=== PATIENT | female | born 1945 | race Caucasian/White ===

== ENCOUNTER → 2021-05-10 | Outpatient (CLI) | payer MEDICARE | END | disposition home or self-care (01) | LOC: LAB SHORT 08:57 → LAB 08:57 | DX: L81.4 Other melanin hyperpigmentation (principal); C44.519 Basal cell carcinoma of skin of other part of trunk | CPT/HCPCS: 88305 ==

== ENCOUNTER → 2022-03-24 | Outpatient (CLI) | payer MEDICARE, OTHER ==
[2022-03-24 11:42] LABS: Source, Urine Voided
[2022-03-24 12:44] LABS: Appearance, Urine Clear (Clear); Bilirubin, Urine Neg (Neg); Blood, Urine Neg (Neg); Color, Urine Yellow (P-Yellow); Glucose Qualitative, Urine Neg (Neg); Ketones, Urine Neg (Neg); Leukocyte Esterase, Urine 1+ (Neg); Nitrite, Urine Neg (Neg); Protein, Urine Neg (Neg); Urobilinogen, Urine NORM (Normal)
[2022-03-24 13:05] LABS: Mucus Light (0-Heavy); Red Blood Cells, Urine 0-2 /hpf (0-2)
[2022-03-24 13:06] LABS: Bacteria Few /hpf; Squamous Epithelial Cells Few /hpf (Few)
== END | disposition home or self-care (01) ==
LOC: LAB SHORT 11:38
PROVIDERS: Internal Medicine
DX: N39.0 Urinary tract infection, site not specified (principal); R45.4 Irritability and anger; R41.0 Disorientation, unspecified
CPT/HCPCS: 81001; 87086

== ENCOUNTER → 2022-11-28 | Outpatient (CLI) | payer MEDICARE | END | disposition home or self-care (01) | LOC: LAB SHORT 08:15 → LAB 08:15 | DX: B35.1 Tinea unguium (principal) | CPT/HCPCS: 88305; 88312 ==

== ENCOUNTER → 2023-01-04 | Outpatient (CLI) | payer MEDICARE ==
[2023-01-04 13:22] LABS: Appearance, Urine Cloudy (Clear); Bilirubin, Urine Neg (Neg); Blood, Urine Neg (Neg); Color, Urine Yellow (P-Yellow); Glucose Qualitative, Urine Neg (Neg); Ketones, Urine Neg (Neg); Leukocyte Esterase, Urine 2+ (Neg); Nitrite, Urine Neg (Neg); Protein, Urine 1+ (Neg); Specific Gravity, Urine 1.015 (1.003-1.022); Urobilinogen, Urine 1+ (Normal); pH, Urine 6.5 (5.0-8.0)
[2023-01-04 14:01] LABS: Bacteria Mod /hpf; Mucus Light (0-Heavy); Red Blood Cells, Urine Not Seen /hpf (0-2); Squamous Epithelial Cells Mod /hpf (Few)
== END | disposition home or self-care (01) ==
LOC: LAB SHORT 10:30
PROVIDERS: Internal Medicine
DX: R30.0 Dysuria (principal)
CPT/HCPCS: 81001; 87077; 87086; 87186

== ENCOUNTER → 2023-08-15 | Outpatient (CLI) | payer MEDICARE ==
[2023-08-15 15:59] LABS: Source, Urine Clean Catch
[2023-08-15 17:17] LABS: Appearance, Urine Clear (Clear); Bilirubin, Urine Neg (Neg); Blood, Urine Neg (Neg); Color, Urine Yellow (P-Yellow); Glucose Qualitative, Urine Neg (Neg); Ketones, Urine Neg (Neg); Leukocyte Esterase, Urine 2+ (Neg); Nitrite, Urine Neg (Neg); Protein, Urine 2+ (Neg); Specific Gravity, Urine 1.025 (1.003-1.022); Urobilinogen, Urine 2+ (Normal)
[2023-08-15 17:30] LABS: Bacteria Mod /hpf; Mucus Mod (0-Heavy); Red Blood Cells, Urine 0-2 /hpf (0-2); Squamous Epithelial Cells Few /hpf (Few)
== END ==
LOC: LAB 14:30 → LAB SHORT 14:30
PROVIDERS: Internal Medicine
DX: N39.0 Urinary tract infection, site not specified (principal)
CPT/HCPCS: 81001; 87086

== ENCOUNTER → 2023-10-16 | Outpatient (CLI) | payer MEDICARE ==
[2023-10-16 14:31] LABS: Appearance, Urine Hazy (Clear); Bilirubin, Urine Neg (Neg); Blood, Urine Neg (Neg); Color, Urine Yellow (P-Yellow); Glucose Qualitative, Urine Neg (Neg); Ketones, Urine Neg (Neg); Leukocyte Esterase, Urine 3+ (Neg); Nitrite, Urine Neg (Neg); Protein, Urine 1+ (Neg); Specific Gravity, Urine 1.015 (1.003-1.022); Urobilinogen, Urine NORM (Normal)
[2023-10-16 14:59] LABS: Bacteria Few /hpf; Hyaline Casts 0-2 /lpf (0-2); Red Blood Cells, Urine 0-2 /hpf (0-2); Squamous Epithelial Cells Few /hpf (Few); Transitional Epithelial Cells Rare /hpf (0-Rare)
[2023-10-16 15:00] LABS: Mucus Light (0-Heavy)
== END | disposition home or self-care (01) ==
LOC: LAB SHORT 13:44 → LAB 13:44
PROVIDERS: Internal Medicine
DX: N39.0 Urinary tract infection, site not specified (principal)
CPT/HCPCS: 81001; 87086

== ENCOUNTER → 2023-10-19 | Outpatient (CLI) | payer MEDICARE ==
[2023-10-19 17:06] LABS: Source, Urine Voided
[2023-10-19 17:45] LABS: Bilirubin, Urine Neg (Neg); Blood, Urine Neg (Neg); Glucose Qualitative, Urine Neg (Neg); Ketones, Urine Neg (Neg); Leukocyte Esterase, Urine 1+ (Neg); Nitrite, Urine Neg (Neg); Protein, Urine 1+ (Neg); Urobilinogen, Urine 2+ (Normal)
[2023-10-19 17:52] LABS: Appearance, Urine Hazy (Clear); Color, Urine Yellow (P-Yellow)
[2023-10-19 17:53] LABS: Red Blood Cells, Urine 0-2 /hpf (0-2)
[2023-10-19 17:54] LABS: Bacteria Few /hpf; Hyaline Casts 0-2 /lpf (0-2); Mucus Light (0-Heavy); Squamous Epithelial Cells Few /hpf (Few); Transitional Epithelial Cells Rare /hpf (0-Rare)
== END ==
LOC: LAB SHORT 17:05 → LAB 17:05
PROVIDERS: Internal Medicine
DX: N39.0 Urinary tract infection, site not specified (principal)
CPT/HCPCS: 81001; 87086

== ENCOUNTER → 2024-02-07 | Outpatient (CLI) | payer MEDICARE ==
[2024-02-07 19:22] LABS: Appearance, Urine Clear (Clear); Bilirubin, Urine Neg (Neg); Blood, Urine Neg (Neg); Color, Urine Yellow (P-Yellow); Glucose Qualitative, Urine Neg (Neg); Ketones, Urine Neg (Neg); Leukocyte Esterase, Urine 1+ (Neg); Nitrite, Urine Neg (Neg); Protein, Urine 1+ (Neg); Specific Gravity, Urine 1.025 (1.003-1.022); Urobilinogen, Urine 1+ (Normal)
[2024-02-07 19:31] LABS: Bacteria Few /hpf; Red Blood Cells, Urine 0-2 /hpf (0-2); Squamous Epithelial Cells Few /hpf (Few)
[2024-02-07 19:32] LABS: Transitional Epithelial Cells Rare /hpf (0-Rare)
== END | disposition home or self-care (01) ==
LOC: LAB SHORT 18:25 → LAB 18:25
PROVIDERS: Internal Medicine
DX: N39.0 Urinary tract infection, site not specified (principal); R41.0 Disorientation, unspecified
CPT/HCPCS: 81001; 87086

== ENCOUNTER 2024-03-24 12:15 | Emergency (ER) | payer MEDICARE ==
[~2024-03-24] VITALS: Ht 167.6 cm; Wt 72.6 kg
[2024-03-24] MEDS ORDERED: AMLO10 PO (13:08)
[2024-03-24] MEDS ORDERED: ABILIFY MYCITE5 M2 PO (13:09)
[2024-03-24] MEDS ORDERED: OMEP20ER PO (13:09)
[2024-03-24] MEDS ORDERED: ASPI81CH PO (13:09)
[2024-03-24] MEDS ORDERED: Zocor10 MG PO (13:10)
[2024-03-24] MEDS ORDERED: VENLAFAXINE H37.5 M1 PO (13:10)
[2024-03-24 14:15] LABS: BASOPHILS ABSOLUTE AUTO 0.04 K/mm3 (0.00-0.23); BASOPHILS PERCENT AUTO 1 % (0-2); EOSINOPHILS ABSOLUTE AUTO 0.05 K/mm3 (0.00-0.68); EOSINOPHILS PERCENT AUTO 1 % (0-6); Hematocrit 38.2 % (33.0-51.0); Hemoglobin 11.9 g/dL (11.5-16.0); IMMATURE GRAN ABSOLUTE AUTO 0.02 K/mm3 (0.00-0.10); IMMATURE GRAN PERCENT AUTO 0 % (0-1); LYMPHOCYTES ABSOLUTE AUTO 1.46 K/mm3 (0.84-5.20); LYMPHOCYTES PERCENT AUTO 17 % (21-46); MONOCYTES PERCENT AUTO 8 % (4-13); Mean Corpuscular HGB 26.5 pg (26.0-34.0); Mean Corpuscular HGB Conc 31.2 g/dL (31.5-36.5); Mean Corpuscular Volume 85 fL (80-100); NEUTROPHILS ABSOLUTE AUTO 6.22 K/mm3 (1.96-9.15); NEUTROPHILS PERCENT AUTO 73 % (41-73); Platelet Count 241 K/mm3 (150-400); RDW Coefficient Variation 13.9 % (11.7-14.2); RDW Standard Deviation 43.1 fL (35.1-46.3); Red Blood Cell Count 4.49 M/mm3 (3.80-5.20); White Blood Cell Count 8.49 K/mm3 (4.00-11.30)
[2024-03-24] MEDS ORDERED: NS 1,000 ML IV SCH (14:25)
[2024-03-24 14:57] LABS: Magnesium, Blood 1.9 mg/dL (1.6-2.4); Thyroid Stimulating Hormone 1.57 uIU/mL (0.360-4.800)
[2024-03-24 14:58] LABS: Albumin, Blood 3.5 g/dL (3.4-5.0); Bilirubin, Total 0.6 mg/dL (0.1-1.0); Bun/Creatinine Ratio 21.2 (12.0-20.0); Calcium, Blood 9.3 mg/dL (8.5-10.1); Creatinine, Blood 0.71 mg/dL (0.40-1.00); Globulin, Blood 3.6 g/dL (2.2-4.0); Potassium, Blood 4.2 mmol/L (3.5-5.5); Total Protein, Blood 7.1 g/dL (6.4-8.2)
[2024-03-24 15:41] LABS: Source, Urine Fem Cath
[2024-03-24 15:46] LABS: Appearance, Urine Clear (Clear); Bilirubin, Urine Neg (Neg); Blood, Urine Neg (Neg); Color, Urine Yellow (P-Yellow); Glucose Qualitative, Urine Neg (Neg); Ketones, Urine Neg (Neg); Leukocyte Esterase, Urine Neg (Neg); Nitrite, Urine Neg (Neg); Protein, Urine Neg (Neg); Urobilinogen, Urine NORM (Normal)
[2024-03-24 16:40] VITALS: BP 150/72
== END 2024-03-24 16:52 | disposition home or self-care (01) ==
LOC: ER 12:15
PROVIDERS: Student in an Organized Health Care Education/Training Program
DX: F01.50 Vascular dementia, unspecified severity, without behavioral disturbance, psychotic disturbance, mood disturbance, and anxiety (principal); I10 Essential (primary) hypertension; Z79.82 Long term (current) use of aspirin; Z79.899 Other long term (current) drug therapy
CPT/HCPCS: 51701; 70450; 80053; 81003; 83735; 84443; 85025; 96360-59; 96361-59; 99285-25; J7030

== ENCOUNTER 2024-03-25 22:07 | Inpatient (IN) | payer MEDICARE ==
[~2024-03-25] VITALS: Ht 167.6 cm; Wt 90.7 kg
[~2024-03-25 22:07] MED LIST: ABILIFY MYCITE5 M2 PO; AMLO10 PO; ASPI81CH PO; OMEP20ER PO; VENLAFAXINE H37.5 M1 PO; Zocor10 MG PO
[2024-03-25 22:45] LABS: Source, Urine Straight Cath
[2024-03-25 23:18] LABS: BASOPHILS ABSOLUTE AUTO 0.03 K/mm3 (0.00-0.23); BASOPHILS PERCENT AUTO 0 % (0-2); EOSINOPHILS PERCENT AUTO 0 % (0-6); Hematocrit 38.7 % (33.0-51.0); Hemoglobin 12.3 g/dL (11.5-16.0); IMMATURE GRAN ABSOLUTE AUTO 0.06 K/mm3 (0.00-0.10); IMMATURE GRAN PERCENT AUTO 0 % (0-1); LYMPHOCYTES ABSOLUTE AUTO 0.58 K/mm3 (0.84-5.20); LYMPHOCYTES PERCENT AUTO 4 % (21-46); MONOCYTES ABSOLUTE AUTO 1.36 K/mm3 (0.16-1.47); MONOCYTES PERCENT AUTO 10 % (4-13); Mean Corpuscular HGB 26.8 pg (26.0-34.0); Mean Corpuscular HGB Conc 31.8 g/dL (31.5-36.5); Mean Corpuscular Volume 84 fL (80-100); NEUTROPHILS ABSOLUTE AUTO 11.31 K/mm3 (1.96-9.15); NEUTROPHILS PERCENT AUTO 85 % (41-73); RDW Coefficient Variation 14.2 % (11.7-14.2); RDW Standard Deviation 43.4 fL (35.1-46.3); Red Blood Cell Count 4.59 M/mm3 (3.80-5.20); White Blood Cell Count 13.34 K/mm3 (4.00-11.30)
[2024-03-25 23:22] LABS: Appearance, Urine Hazy (Clear); Bilirubin, Urine Neg (Neg); Blood, Urine 2+ (Neg); Color, Urine Yellow (P-Yellow); Glucose Qualitative, Urine Neg (Neg); Ketones, Urine 3+ (Neg); Leukocyte Esterase, Urine 1+ (Neg); Nitrite, Urine Neg (Neg); Protein, Urine 2+ (Neg); Specific Gravity, Urine 1.025 (1.003-1.022); Urobilinogen, Urine 1+ (Normal)
[2024-03-25 23:44] LABS: Bacteria Many /hpf; Squamous Epithelial Cells Few /hpf (Few)
[2024-03-26 00:42] LABS: Platelet Count 214 K/mm3 (150-400)
[2024-03-26 00:53] LABS: Albumin, Blood 3.3 g/dL (3.4-5.0); Albumin/Globulin Ratio 0.8 (0.8-1.8); Bun/Creatinine Ratio 27.2 (12.0-20.0); Calcium, Blood 9.1 mg/dL (8.5-10.1); Creatinine, Blood 0.77 mg/dL (0.40-1.00); Globulin, Blood 3.9 g/dL (2.2-4.0); Potassium, Blood 4.2 mmol/L (3.5-5.5); Total Protein, Blood 7.2 g/dL (6.4-8.2)
[2024-03-26] MEDS ORDERED: CefTRIAXone Sodium 1,000 MG in NS 50 ML IV ONE (01:05)
[2024-03-26] MEDS ORDERED: NS 1,000 ML IV SCH (02:10)
[2024-03-26] MEDS ORDERED: Acetaminophen 325 MG TABLET PO PRN (03:30)
--- NOTE | 2024-03-26 06:27 | NUR ---
SHIFT SUMMARY 78 YR F ADMITTED AT APPROX 0545 THIS SHIFT FROM THE ED. PT HAS SEVERE DEMENTIA AND IS UNABLE TO ANSWER QUESTIONS OR BE ASSESSED. SHE SCREAMS WHEN SHE IS TOUCHED. PER REPORT, FAMILY WILL BE IN THIS MORNING AND WILL BE ABLE TO HELP ANSWER QUESTIONS AND CALM PT ENOUGH TO BE ABLE TO ASSESS HER.
[2024-03-26 07:55] VITALS: BP 177/76
[2024-03-26] MEDS ORDERED: Enoxaparin 40 MG/0.4 ML SYR SC SCH (09:00)
[2024-03-26 16:47] VITALS: BP 148/66
--- NOTE | 2024-03-26 17:53 | NUR ---
PT FINALLY WOKE UP THIS OMERO. JUST TRIED BEDSIDE SWALLOW. DID WELL. SPOON AND SIPS, DID NOT TRY STRAW YET. PT STATES DAUGHTER IS STAR. CORRECT. ABLETO TELL ME HER NAME. BED IN LOW POSITION, CALLLITE IN REAC, BED ALARM ON FOR SAFETY
--- NOTE | 2024-03-26 17:55 | NUR ---
PT WOKE UP THIS OMERO. ABLE TO SWALLOW WATER. PT TALKING SOME. HER NAME AND DAUGHTER NAME. SHE DOING SOME BETTER. NO OTHER CHANGES NOTED TODAY. BED IN LOW POSITION, CALL LITE IN REACH, BED ALARM ONFOR SAFETY
[2024-03-26 19:32] VITALS: BP 153/64
[2024-03-27 03:54] VITALS: BP 169/83
[2024-03-27 03:58] VITALS: BP 155/73
--- NOTE | 2024-03-27 04:25 | NUR ---
HOSPITALIST CONTACTED. HOSPITALIST DR. THOMAS CONTACTED AND NOTIFIED OF PATIENT HAVING NEW PIN HOLE OPENING ON INNER RIGHT THIGH. DR. THOMAS ORDERED FOR BANDAGE ON OPENING TO BE CHANGED TWICE A DAY TO KEEP CLEAN AND DRY.
[2024-03-27] MEDS ORDERED: NS 1,000 ML IV SCH (04:40)
--- NOTE | 2024-03-27 05:23 | NUR ---
SHIFT SUMMARY. PATIENT MORE ALERT THIS MORNING DURING INCONTINENCE CHANGE. PATIENTS SPEECH IN MUMBLED AND NONSENSICAL MAJORITY OF THE NIGHT. PATIENT STARTED ON NS 75ML/HR X2BAGS. PATIENT RESTED T/O MOST OF SHIFT WITH RESPIRATIONS EQUAL AND UNLABORED, PATIENT IS SATTING >95% ON RA. PATIENT NIKITA OUT WHEN TOUCHED, WHEN PATIENT IS ASKED IF SHE HURTS SHE REPLIES "NO, I DONT HURT". PATIENT IS CONFUSED AND ONLY ABLE TO ANSWER NAME AND DATE OF THIS SHIFT. PATIENT HAS HX OF DEMENTIA. BED IS LOCKED IN THE LOWEST POSITION WITH CALL LIGHT IN REACH. CARE IS ONGOING.
[2024-03-27] MEDS ORDERED: CefTRIAXone Sodium 1,000 MG in NS 100 ML IV SCH (06:00)
[2024-03-27 06:36] LABS: BASOPHILS ABSOLUTE AUTO 0.04 K/mm3 (0.00-0.23); BASOPHILS PERCENT AUTO 0 % (0-2); EOSINOPHILS PERCENT AUTO 0 % (0-6); Hemoglobin 11.6 g/dL (11.5-16.0); IMMATURE GRAN ABSOLUTE AUTO 0.04 K/mm3 (0.00-0.10); IMMATURE GRAN PERCENT AUTO 0 % (0-1); LYMPHOCYTES ABSOLUTE AUTO 0.74 K/mm3 (0.84-5.20); LYMPHOCYTES PERCENT AUTO 7 % (21-46); MONOCYTES ABSOLUTE AUTO 1.14 K/mm3 (0.16-1.47); MONOCYTES PERCENT AUTO 11 % (4-13); Mean Corpuscular HGB 26.7 pg (26.0-34.0); Mean Corpuscular HGB Conc 31.4 g/dL (31.5-36.5); Mean Corpuscular Volume 85 fL (80-100); Mean Platelet Volume 11.9 fL (9.1-12.4); NEUTROPHILS PERCENT AUTO 81 % (41-73); Platelet Count 183 K/mm3 (150-400); RDW Coefficient Variation 14.2 % (11.7-14.2); RDW Standard Deviation 44.3 fL (35.1-46.3); Red Blood Cell Count 4.35 M/mm3 (3.80-5.20); White Blood Cell Count 10.46 K/mm3 (4.00-11.30)
[2024-03-27 06:55] LABS: Albumin, Blood 2.9 g/dL (3.4-5.0); Albumin/Globulin Ratio 0.7 (0.8-1.8); Bilirubin, Total 0.7 mg/dL (0.1-1.0); Bun/Creatinine Ratio 33.3 (12.0-20.0); Calcium, Blood 9.2 mg/dL (8.5-10.1); Creatinine, Blood 0.84 mg/dL (0.40-1.00); Globulin, Blood 3.9 g/dL (2.2-4.0); Potassium, Blood 3.9 mmol/L (3.5-5.5); Total Protein, Blood 6.8 g/dL (6.4-8.2)
[2024-03-27 07:33] VITALS: BP 165/81
[2024-03-27] MEDS ORDERED: OLMESARTAN-HCT1 EAC3 PO (08:22)
--- NOTE | 2024-03-27 08:23 | NUR ---
VERBAL 0820- FROM DR. BAH- ORDER AMLODIPINE 10MG DAILY.
[2024-03-27] MEDS ORDERED: AmLODIPine Besylate 5 MG Tab PO SCH (09:00)
[2024-03-27 17:04] VITALS: BP 153/69
--- NOTE | 2024-03-27 17:45 | NUR ---
SUMMARY- PT AAOX1 TO SELF THIS SHIFT. PT LETHARGIC THIS MORNING, BUT DID BECOME MORE ALERT BY MID SHIFT AND ASKED FOR SOMETHING TO EAT. THIS RN CALLED DR. COELHO AND MD SAID TO PERFORM A BEDSIDE SWALLOW STUDY FROM RN. PT DID WELL WITH THIN LIQUIDS AND ALL FOOD. PT WAS ORDERED A SOFT AND BITE SIZED DIET. PT WAS COMPLAINING OF GENERAL PAIN THIS SHIFT, WHICH SHE WAS GIVEN TYLENOL FOR. TYLENOL WAS MODERATELY HELPFUL WITH PAIN CONTROL. BED REST ALL SHIFT. PT WORKED WITH PT AND OT SITTING ON THE EDGE OF THE BED ONLY.
[2024-03-27] MEDS ORDERED: BUSPIRONE HCL10 M6 PO (18:14)
[2024-03-27] MEDS ORDERED: Diflucan100 MG PO (18:15)
[2024-03-27] MEDS ORDERED: NAPROXEN500 MG PO (18:17)
[2024-03-27 19:50] VITALS: BP 145/57
[2024-03-27] MEDS ORDERED: Atorvastatin 10 MG Tab PO SCH (21:00)
[2024-03-28 04:13] VITALS: BP 162/60
--- NOTE | 2024-03-28 04:37 | NUR ---
SHIFT SUMMARY: A&O1/2 ALERT TO SELF PLEASANT AND COOPERATIVE. RA DENIES . NO TELE DENIES CP/PRESSURE MURMUR PRESENT. SOFT AND BITE SIZED MEALS. INCONTINENT PT PLACED ON PUREWICK DRAINING DARLENE/TEA COLORED URINE. R INNER THIGH DRSG TO COVER ABRASION. PT/OT ORDERED. TYLENOL PRN ADMIN TO ADEQUATELY REDUCE MINIMAL PAIN. QUESTIONS ANSWERED, CONCERNS ADDRESSED, PT DENIES NEEDS.
[2024-03-28 05:14] LABS: BASOPHILS ABSOLUTE AUTO 0.04 K/mm3 (0.00-0.23); BASOPHILS PERCENT AUTO 1 % (0-2); EOSINOPHILS ABSOLUTE AUTO 0.03 K/mm3 (0.00-0.68); EOSINOPHILS PERCENT AUTO 0 % (0-6); Hematocrit 33.6 % (33.0-51.0); Hemoglobin 10.4 g/dL (11.5-16.0); IMMATURE GRAN PERCENT AUTO 1 % (0-1); LYMPHOCYTES PERCENT AUTO 15 % (21-46); MONOCYTES ABSOLUTE AUTO 1.06 K/mm3 (0.16-1.47); MONOCYTES PERCENT AUTO 12 % (4-13); Mean Corpuscular HGB 26.3 pg (26.0-34.0); Mean Corpuscular Volume 85 fL (80-100); Mean Platelet Volume 11.5 fL (9.1-12.4); NEUTROPHILS ABSOLUTE AUTO 6.25 K/mm3 (1.96-9.15); NEUTROPHILS PERCENT AUTO 71 % (41-73); Platelet Count 186 K/mm3 (150-400); RDW Standard Deviation 43.9 fL (35.1-46.3); Red Blood Cell Count 3.95 M/mm3 (3.80-5.20); White Blood Cell Count 8.78 K/mm3 (4.00-11.30)
[2024-03-28 05:47] LABS: Albumin, Blood 2.4 g/dL (3.4-5.0); Albumin/Globulin Ratio 0.6 (0.8-1.8); Bilirubin, Total 0.7 mg/dL (0.1-1.0); Bun/Creatinine Ratio 43.3 (12.0-20.0); Creatinine, Blood 0.67 mg/dL (0.40-1.00); Potassium, Blood 3.6 mmol/L (3.5-5.5); Total Protein, Blood 6.4 g/dL (6.4-8.2)
[2024-03-28] MEDS ORDERED: Omeprazole 20 MG CapCR PO SCH (06:00)
[2024-03-28 07:56] VITALS: BP 163/72
[2024-03-28] MEDS ORDERED: Aspirin 81 MG Chew PO SCH (09:00)
[2024-03-28] MEDS ORDERED: Venlafaxine HCl 75 MG CapCR PO SCH (09:00)
[2024-03-28] MEDS ORDERED: ARIPiprazole 5 MG Tab PO SCH (09:00)
[2024-03-28 15:46] VITALS: BP 134/69
--- NOTE | 2024-03-28 16:40 | NUR ---
SHIFT SUMMARY: PT IS A&01-2 (SELF, PERSON, AND HOLLIDAY) SHE IS CONFUSED, HAVING VISUAL HALLUNICATIONS, AND IS CONVINCED THAT SHE CAN GET UP AND WALK OUT OF THE HOSPITAL. PATIENT HAS BEEN IN BED THE ENTIRE SHIFT, GETTING Q2HR TURNS. SHE WORKED WITH OT TODAY AND WAS DEEMED AND 2 PERSON MAX FOR CARE; THEY (TWO PEOPLE) WERE ABLE TO GET HER TO SIT ON THE SIDE OF THE BED AND HAVE HER FEET TOUCH THE FLOOR, BUT THE PATIENT QUICKLY REQUESTED TO LAY BACK DOWN. PATIENT IS WEAK. SHE HOLLERS OUT IF NEEDED, CAN ANSWER QUESTIONS AND HAVE A CONVERSATION EVEN IF THE RESPONSES ARE NOT APPRORIATE. SHE IS EATING AND DRINKING WITH ASSISTANCE. HAS TROUBLE FOLLOWING INSTRUCTIONS. SHE CONTINUES TO GET IV ANITBIOTICS, WORKING WITH THERAPY, AND AWAITING PLACEMENT. SHE IS IN BED, CALL LIGHT WITHIN REACH, NO SIGNS OR SYMPTOMS OF DISTRESS, PLAN OF CARE ONGOING.
[2024-03-28 19:27] VITALS: BP 152/74
[2024-03-28] MEDS ORDERED: Lactobacil 2-S.Thermo-Bifido 1 1 Cap PO SCH (21:00)
--- NOTE | 2024-03-29 05:19 | NUR ---
SHIFT SUMMARY: A&OX2/3 PT CONFUSED AND FIXATING ON CONCEPTS OR THOUGHTS NOT BASED WITHIN THIS REALITY SUCH INACCURATE CURRENT LOCATION OR VERY RECENT MEMORIES. RA DENIES SOB NO S/S RESPIRATORY DISTRESS. NO TELE DENIES CP/PRESSURE, MURMUR PRESENT. UNKNOWN LAST BM. INCONTINENT W/ PUREWICK IN PLACE. PT OOB AT BEGINNING OF SHIFT TO SIT UP AND FINISH DINNER. PT SWALLOWED PILLS IN APPLESAUCE ONE AT A TIME. SAFETY MONITORED, BED LOCKED AND LOW W/ CALL LIGHT WITHIN REACH. PT FREQUENTLY ROUNDED ON AND NURSE SAT CLOSE TO PT ROOM TO ENSURE SAFETY. PT AUDIBLE FROM NURSE STATION. QUESTIONS ANSWERED, CONCERNS ADDRESSED, PT STATES NEEDS TO GET OUT AND IMPLIES INTENTION OF NEEDING TO BE ELSEWHERE. MILD C/O OF CHRONIC PAIN, NO PAIN MEDICATION ADMIN THIS SHIFT.
[2024-03-29 05:28] VITALS: BP 144/55
[2024-03-29 07:56] VITALS: BP 153/69
--- NOTE | 2024-03-29 08:55 | NUR ---
CALL MADE TO DR. BAH REQUEST BOWEL MEDS FOR PATIENT; LEFT MESSAGE
--- NOTE | 2024-03-29 12:15 | NUR ---
BLADDER SCANNED PATIENT AT 1140 DUE TO NO URINE PRODUCTION THIS SHIFT RETENTING 374 DR. COELHO NOTIFIED ADVISED TO RESCAN IN 2 HOURS AND IF VOLUME GREATER THAN 500 TO STRAIGHT CATH.
[2024-03-29] MEDS ORDERED: Polyethylene Glycol 3350 17 gm PO PRN (12:25)
[2024-03-29] MEDS ORDERED: Docusate Sodium/Senna 1 Tab PO PRN (12:25)
[2024-03-29 15:45] VITALS: BP 137/90
--- NOTE | 2024-03-29 16:27 | NUR ---
SHIFT SUMMARY: PT IS A&O TO SELF TODAY. SHE REMAINS CONFUSES AND HAVE HALLUNICATIONS. SHE CONTINUES TO GET IV ANTIBIOTICS. SHE HASN'T EATEN OR DRANK MUCH TODAY; EATING AND DRINKING IS BEING ENCOURAGED. SHE CAN SIT ON THE EDGE OF THE BED WITH ASSISTANCE AND SUPERVISION; SHE REMAINS NON WEIGHT BEARING. SHE IS WEAK. UPDATE PROVIDED TO DAUGHTER STAR TODAY. STILL AWAITING ON PLACEMENT. PATIENT IN BED, CALL LIGHT WITHIN REACH, NO SIGNS OR SYMPTOMS OF DISTRESS, PLAN OF CARE ONGOING.
[2024-03-29] MEDS ORDERED: NS 1,000 ML IV SCH (16:35)
[2024-03-29 20:05] VITALS: BP 165/65
[2024-03-29 21:27] VITALS: BP 150/69
[2024-03-30 05:01] VITALS: BP 171/82
[2024-03-30 07:56] VITALS: BP 155/70
[2024-03-30 15:27] VITALS: BP 145/73
--- NOTE | 2024-03-30 17:49 | NUR ---
SHIFT SUMMARY PT A&O TO SELF, VSS, BEDRIDDEN, TOLERATING PO, VOIDING VERY LITTLE, AND PAIN MANAGED PER EMAR. WOUND CARE COMPLETED PER ORDER. CALL LIGHT WITHIN REACH.
[2024-03-30 19:18] VITALS: BP 169/71
[2024-03-31 03:20] VITALS: BP 153/81
--- NOTE | 2024-03-31 06:41 | NUR ---
SHIFT SUMMARY: PATIENT IS ALERT AND ORIENTED TO SELF, SLEEPING MUCH OF THE SHIFT. BLADDER SCANNED FOR 166 MLS, TOTAL OUTPUT FOR THE SHIFT IS 900 MLS. SOME OF THIS AMOUNT MAY HAVE BEEN VOIDED ON DAY SHIFT YESTERDAY. PATIENT CONTINUES TO CHEW CAPSULES THAT CAN NOT BE CRUSHED, WHEN GIVEN IN APPLE SAUCE. PO INTAKE IS POOR AND PATIENT REQUIRES MUCH ENCOURAGEMENT.
[2024-03-31 07:02] VITALS: BP 165/73
[2024-03-31 08:10] LABS: Bun/Creatinine Ratio 38.9 (12.0-20.0); Calcium, Blood 9.5 mg/dL (8.5-10.1); Creatinine, Blood 0.57 mg/dL (0.40-1.00); Potassium, Blood 3.3 mmol/L (3.5-5.5)
[2024-03-31] MEDS ORDERED: Potassium Chloride 20 MEQ TabCR PO ONE (09:00)
[2024-03-31 10:06] LABS: SARS-Cov-2 (COVID-19) PCR, MMC POSITIVE (NEGATIVE)
[2024-03-31 15:21] VITALS: BP 105/69
--- NOTE | 2024-03-31 16:40 | NUR ---
PATIENT WAS RESTING WHEN I ROUNDED. DISCUSSED CASE WITH PROVIDER AND BEDSIDE RN. CALLED DAUGHTER STAR. SHE WILL BE IN TOMORROW AT 1030 TO HAVE A GOALS OF CARE CONVERSATIONS WITH PROVIDER. SHE IS IN THE PROCESS ON MOVING TO OUT OF STATE, AND WAS PLANNING ON TAKING HANNAH WITH. PC WILL REMAIN AVALIABLE.
--- NOTE | 2024-03-31 17:58 | NUR ---
SUMMARY- PT AAOX1 TO SELF THIS SHIFT. PT LETHARGIC THIS SHIFT AND REFUSED TO WORK WITH PT AND OT. PT MOANS IN PAIN WITH MOVEMENT WHEN TURNING EVERY 2 HOURS. PT MEDICATED WITH TYLENOL. PT SLEPT MOST OF THE SHIFT. BEDREST. THIS RN SPOKE WITH DAUGHTERS TWICE THIS SHIFT AND UPDATED THEM ON THEIR MOTHER'S STATUS. DR. COELHO AND BARAK BOTH GIVEN ROLAND'S PHONE NUMBER IN ORDER TO CALL DAUGHTER TO DISCUSS PT'S CODE STATUS/FUTURE PLANNING.
[2024-03-31 19:15] VITALS: BP 138/68
[2024-04-01] MEDS ORDERED: BISA10S PR (02:43)
[2024-04-01] MEDS ORDERED: EUCERIN INTENS250 M1 TOP (02:44)
[2024-04-01] MEDS ORDERED: ALMACONE SUSPE355 ML PO (02:45)
[2024-04-01] MEDS ORDERED: HYDROCORTISON28.4 G4 TOP (02:46)
[2024-04-01] MEDS ORDERED: LOPE2C PO (02:46)
[2024-04-01] MEDS ORDERED: LOPERAMIDE1 MG/7.10 PO (02:47)
[2024-04-01] MEDS ORDERED: DULCOLAX400 MG/5 M PO (02:48)
[2024-04-01] MEDS ORDERED: MIRALAX17 GM PO (02:48)
[2024-04-01] MEDS ORDERED: PRESERVISION A1 EAC1 PO (02:50)
[2024-04-01] MEDS ORDERED: ACET500 PO (02:51)
[2024-04-01 04:58] VITALS: BP 146/76
[2024-04-01 06:03] LABS: BASOPHILS ABSOLUTE AUTO 0.03 K/mm3 (0.00-0.23); BASOPHILS PERCENT AUTO 0 % (0-2); EOSINOPHILS ABSOLUTE AUTO 0.06 K/mm3 (0.00-0.68); EOSINOPHILS PERCENT AUTO 1 % (0-6); Hematocrit 33.9 % (33.0-51.0); Hemoglobin 10.6 g/dL (11.5-16.0); IMMATURE GRAN ABSOLUTE AUTO 0.03 K/mm3 (0.00-0.10); IMMATURE GRAN PERCENT AUTO 0 % (0-1); LYMPHOCYTES ABSOLUTE AUTO 0.95 K/mm3 (0.84-5.20); LYMPHOCYTES PERCENT AUTO 10 % (21-46); MONOCYTES ABSOLUTE AUTO 1.01 K/mm3 (0.16-1.47); MONOCYTES PERCENT AUTO 11 % (4-13); Mean Corpuscular HGB 26.4 pg (26.0-34.0); Mean Corpuscular HGB Conc 31.3 g/dL (31.5-36.5); Mean Corpuscular Volume 84 fL (80-100); Mean Platelet Volume 10.7 fL (9.1-12.4); NEUTROPHILS ABSOLUTE AUTO 7.22 K/mm3 (1.96-9.15); NEUTROPHILS PERCENT AUTO 78 % (41-73); Platelet Count 270 K/mm3 (150-400); RDW Coefficient Variation 14.2 % (11.7-14.2); RDW Standard Deviation 43.9 fL (35.1-46.3); Red Blood Cell Count 4.02 M/mm3 (3.80-5.20)
--- NOTE | 2024-04-01 06:06 | NUR ---
SHIFT SUMMARY PATIENT SLEPT MOST OF THE NIGHT. MOANING WHENEVER WE REPOSITIONED HER. TOOK PILLS IN APPLESAUCE AND SMALL SIPS WATER. DRANK ALMOST ENTIRE SHAKE THIS MORNING.
[2024-04-01 06:38] LABS: Albumin, Blood 2.1 g/dL (3.4-5.0); Albumin/Globulin Ratio 0.5 (0.8-1.8); Bilirubin, Total 0.6 mg/dL (0.1-1.0); Bun/Creatinine Ratio 38.3 (12.0-20.0); Calcium, Blood 9.2 mg/dL (8.5-10.1); Creatinine, Blood 0.57 mg/dL (0.40-1.00); Globulin, Blood 4.4 g/dL (2.2-4.0); Potassium, Blood 3.3 mmol/L (3.5-5.5); Total Protein, Blood 6.5 g/dL (6.4-8.2)
--- NOTE | 2024-04-01 07:10 | NUR ---
THIS RN SPOKE WITH INFECTION CONTROL-[id number] THIS RN CALLED INFECTION CONTROL AND DISCUSSED THE POSITIVE COVID PCR RESULT PERFORMED YESTERDAY WELL THE NEGATIVE BEDSIDE RAPID AND ASKED WHY PT WAS PLACED ON PRECAUTIONS. INFECTION CONTROL WAS NOT AWARE OF THE NEGATIVE BEDSIDE RAPID TEST. INFECTION CONTROL LOOKED UP THE DOCUMENTATION OF THE NEG RAPID RESULTS AND STATED THAT PT COULD COME OUT OF PRECAUTIONS.
[2024-04-01 07:24] VITALS: BP 127/52
[2024-04-01] MEDS ORDERED: Morphine Sulfate 10 MG/ML 1MLSYR IV PRN (11:05)
[2024-04-01] MEDS ORDERED: LORazepam 1 MG Tab PO PRN (12:50)
[2024-04-01] MEDS ORDERED: Morphine Sulfate 20 MG/1ML 1 ML Oral Syringe SL PRN (12:50)
[2024-04-01] MEDS ORDERED: Atropine Sulfate 1% Opth Soln 2ML BTL SL PRN (12:50)
[2024-04-01] MEDS ORDERED: Acetaminophen 650 MG Supp PR PRN (12:50)
[2024-04-01] MEDS ORDERED: Scopolamine Hydrobromide Patch TOP PRN (12:50)
[2024-04-01] MEDS ORDERED: Bisacodyl 10 MG Supp PR ONE (13:00)
--- NOTE | 2024-04-01 13:01 | NUR ---
GOALS OF CARE MEETING WITH PT, FAMILY, PROVIDER, CM AND PC RN START PT ON COMFORT CARE NOW AND PLAN FOR D/C HOME ([facility]) ON [facility]. POLST FORM COMPLETED TO REFLECT DNR/TRAY SERVER.
--- NOTE | 2024-04-01 14:44 | NUR ---
ADDENDUM TO GOALS OF CARE VISIT HANNAH IS RESTING WITH HER EYES CLOSED. SHE IS LEANING TO THE LEFT SIDE. NOT ABLE TO PARTICIPATE IN REPOSITIONING. SPEECH IS SLOW. RUE TRACE EDEMA. LUE 2+ GALILEO EDEMA, SKIN IS MOIST TO THE TOUCH. DENIES PAIN. HOWEVER, GROANS WITH MOVEMENT OF RIGHT ARM. SHE IS NOT ABLE TO COORDINATE LIFTING A CUP OF WATER TO HER MOUTH WITHOUT ASSISTANCE. ORAL INTAKE HAS DECREASED TO JUICE, ENSURE AND WATER. BED/CHAIR EXISTANCE. INCONTINENT OF BOWEL/BLADDER. 6 MTS AGO: INDEPENDENT WITH IADL'S. ASSISTANCE WITH MEAL PREP, ETL TESTER AND SBA FOR SHOWERS. SOCIALIZING AT ASSISTED LIVING FACILITY. 1 MTH AGO: NEEDING ASSISTANCE WITH SHOWERS. FREQUENT REMINDERS TO COMPLETE ROUTINE TASKS. ORAL INTAKE STARTING TO DECREASE. STILL SOCIALIZING WITH FRIENDS. 1 WK AGO: RECURRENT UTI'S. AMS. GENERALIZED WEAKNESS. POOR ORAL INTAKE.
--- NOTE | 2024-04-01 17:37 | NUR ---
SUMMARY- PT AAOX0 TODAY. PT CANNOT STATE HER , SHE CAN ONLY STATE HER NAME. BEDREST. PT DOES NOT FOLLOW COMMANDS. PT HAS BEEN GIVEN ROXANOL 10-15MG TWICE THIS SHIFT FOR PAIN FACES SCALE=8/10 SINCE BECOMMING COMFORT CARE. PT IS THE MOST PAINFUL WHEN WE ARE TURNING HER/TOUCHING HER. NO ATIVAN REQUIRED FOR COMFORT THIS SHIFT. PT ON RA.
--- NOTE | 2024-04-02 06:36 | NUR ---
SHIFT SUMMARY PT IS ON COMFORT CARE. PT IS SOM[place]LET BUT RESPONDS TO VERBAL/OR PAINFUL STIMULI. OCCASIONALLY ORIENTED TO HERSELF. C/O PAIN WITH ANY MOVEMENT. MEDICATED WITH 20MG ROXANOL. RESPERATIONS ARE BRADYPNEA AND SHALLOW. PT NOT ABLE TO VOID, BLADDER SCAN WAS 470ML. CASTELLANO CATHETER PLACED, DRAINING DARK YELLOW URINE. BRIEF IN PLACE, NO BM THIS SHIFT. REPOSITIONED TOLERATED. BED IN LOWEST POSITION, CALL LIGHT WITHIN REACH. BED ALARM SET FOR PT'S SAFETY.
--- NOTE | 2024-04-02 17:40 | NUR ---
SUMMARY- PT AAOX0. BEDREST. PT REQUIRED 20MG ROXANOL TWICE THIS SHIFT FOR PAIN WHEN MOVING/TURNING PT. PT CALM AND SLEEPING MOST OF THE SHIFT.
[2024-04-02] MEDS ORDERED: Bisacodyl 10 MG Supp PR PRN (21:00)
[2024-04-03] MEDS ORDERED: Ibuprofen 600 MG Tab PO PRN (07:35)
--- NOTE | 2024-04-03 07:43 | NUR ---
SLEPT THROUGHOUT NIGHT , AWAKES WHILE REPOSITIONING WITH GUARDING, DID NOT APPEAR PAINFUL, DID NOT AWAKE TO MEDICATE, COMFORT CARE, CASTELLANO IN PLACE, DRAINING DARK YELLOW. NO ACUTE S/S OF DISTRESS, CONFUSED THIS AM WAS ABLE TO STATE NAME HOWEVER NON SENSIBLE AT TIMES WHEN ASKED QUESTIONS DATE PLACE YEAR, PT REPORTS SHE WAS SLEEPING IN THE BEDROOM AT HER PARENTS AND CONFUSED WHEN TOLD SHE WAS IN HOSPITAL. MADE MADE COMFORTABLES, CALL LIGHT WN REACH, FALL PRECAUTIONS MAINTAINED.
--- NOTE | 2024-04-03 11:16 | NUR ---
DISCHARGE AT 1005HRS WITH EMS TRANSPORT, TRANSFERED VIA SLIDE SHEET [facility]. DISCHARGED WITH NO PIV IN PLACE, CASTELLANO IN PLACE. MEDICATED WITH ROXINAL PRIOR TO BED BATH NOT LONG BEFORE TRANSPORTATION. +FACIAL GRIMACE/TENSENESS WHEN REPOSITIONED.
[2024-04-03] MEDS ORDERED: TRANSDERM-SCOP1 EA13 TD (11:47)
[2024-04-03] MEDS ORDERED: Ativan1 MG PO (11:47)
== END 2024-04-03 10:10 | disposition hospice, home (50) | DRG 871 ==
LOC: ER 22:07 → MEDS 03-26 03:27
PROVIDERS: Emergency Medicine; Family Medicine Adult Medicine; Hospitalist; Student in an Organized Health Care Education/Training Program; ADMIT Student in an Organized Health Care Education/Training Program
DX: A41.9 Sepsis, unspecified organism (principal); G92.8 Other toxic encephalopathy; U07.1 COVID-19; N39.0 Urinary tract infection, site not specified; F01.C4 Vascular dementia, severe, with anxiety; R65.20 Severe sepsis without septic shock; E86.0 Dehydration; Z66 Do not resuscitate; Z51.5 Encounter for palliative care; I10 Essential (primary) hypertension; F41.8 Other specified anxiety disorders; M19.90 Unspecified osteoarthritis, unspecified site; I35.0 Nonrheumatic aortic (valve) stenosis; G47.00 Insomnia, unspecified; Z79.82 Long term (current) use of aspirin; Z79.899 Other long term (current) drug therapy; R54 Age-related physical debility
CPT/HCPCS: 36415; 51701; 74177; 80048; 80053; 81001; 83605; 85025; 87040; 87086; 93005; 93010; 96365-59; 97162; 97165; 97530; 99285-25; A9270; J0696; J1650; J7030; Q9967; U0002